=== PATIENT | male | born 1945 | race Hispanic/Latino ===

== ENCOUNTER → 2018-01-13 | Outpatient (CLI) | payer OTHER, MEDICARE ==
[2018-01-13 15:46] LABS: CREATININE 1.1 mg/dL (0.5-1.5)
== END | disposition home or self-care (01) ==
LOC: LAB 14:58
PROVIDERS: ATTEND Internal Medicine Gastroenterology
DX: C20 Malignant neoplasm of rectum (principal)
CPT/HCPCS: 36415; 82565; 84520

== ENCOUNTER → 2018-01-14 | Outpatient (CLI) | payer OTHER, MEDICARE ==
[~2018-01-14] MED LIST: IOHEXOL 350 MG/ML 100ML INFUS..BTL IV ONE
== END | disposition home or self-care (01) ==
LOC: OIH 07:44
PROVIDERS: ATTEND Internal Medicine Medical Oncology
DX: C20 Malignant neoplasm of rectum (principal); K80.20 Calculus of gallbladder without cholecystitis without obstruction
CPT/HCPCS: 74178; Q9967

== ENCOUNTER 2020-11-15 11:59 | Emergency (ER) | payer MEDICARE ==
[~2020-11-15] VITALS: Ht 157.5 cm; Wt 90.7 kg
[2020-11-15 13:27] VITALS: BP 138/66
[2020-11-15] MEDS ORDERED: ACET-3194 PO (13:41)
== END 2020-11-15 14:49 | disposition home or self-care (01) ==
LOC: EDH 11:59
DX: S01.81XA Laceration without foreign body of other part of head, initial encounter (principal); E11.9 Type 2 diabetes mellitus without complications; I10 Essential (primary) hypertension; E78.00 Pure hypercholesterolemia, unspecified; Z98.890 Other specified postprocedural states; W22.8XXA Striking against or struck by other objects, initial encounter; Y93.89 Activity, other specified; Y92.89 Other specified places as the place of occurrence of the external cause; Y99.8 Other external cause status
CPT/HCPCS: 12002; 12013; 70450

== ENCOUNTER 2020-11-27 10:56 | Emergency (ER) | payer MEDICARE ==
[~2020-11-27] VITALS: Ht 165.1 cm; Wt 96.2 kg
[2020-11-27 10:56] VITALS: BP 142/66
[~2020-11-27 10:56] MED LIST changes: +ACET-3194 PO; -IOHEXOL 350 MG/ML 100ML INFUS..BTL IV ONE
== END 2020-11-27 11:53 | disposition home or self-care (01) ==
LOC: EDH 10:56
DX: S01.01XD Laceration without foreign body of scalp, subsequent encounter (principal); I10 Essential (primary) hypertension; E78.00 Pure hypercholesterolemia, unspecified; E11.9 Type 2 diabetes mellitus without complications; Z98.890 Other specified postprocedural states; X58.XXXD Exposure to other specified factors, subsequent encounter
CPT/HCPCS: 99281

== ENCOUNTER → 2022-05-04 | Outpatient (CLI) | payer MEDICARE ==
[~2022-05-04] MED LIST changes: +GADOTERATE MEGLUMINE 10 MMOL/20 ML VIAL IV ONE
== END | disposition home or self-care (01) ==
LOC: RAH 14:50
PROVIDERS: ATTEND Surgery
DX: K43.5 Parastomal hernia without obstruction or gangrene (principal); C20 Malignant neoplasm of rectum; M24.852 Other specific joint derangements of left hip, not elsewhere classified; Z93.3 Colostomy status
CPT/HCPCS: 72197; A9575